=== PATIENT | male | born 1960 | race Caucasian/White ===

== ENCOUNTER 2017-09-12 16:29 | Emergency (ER) | payer MEDICAID ==
[~2017-09-12] VITALS: Ht 182.9 cm; Wt 82.6 kg
--- NOTE | 2017-09-12 16:43 | NUR ---
Pt denies SI/HI.
[2017-09-12] MEDS ORDERED: IV NS 1000 ML 1,000 ML IV ONE (17:15)
--- NOTE | 2017-09-12 17:43 | NUR ---
[facility] at the bedside for report. Pt is being pleasent and cooperative w/ staff and officers.
[2017-09-12 18:07] LABS: ETHANOL < 3 MG/DL (0-0)
[2017-09-12 18:22] LABS: ALANINE AMINOTRANSFERASE 27 U/L (16-63); ALKALINE PHOSPHATASE 54 U/L (50-136); ASPARTATE AMINOTRANSFERASE 23 U/L (15-37); BILIRUBIN,TOTAL 0.3 mg/dL (0.2-1.0); CARBON DIOXIDE 28 mmol/L (21-32); CHLORIDE 104 mmol/L (98-107); GLUCOSE 131 mg/dL (74-106); POTASSIUM 4.1 mmol/L (3.5-5.1); TOTAL PROTEIN, SERUM 6.7 g/dL (6.4-8.2); UREA NITROGEN, BLOOD 23 mg/dL (7-18)
[2017-09-12 18:32] LABS: ACETAMINOPHEN < 2.0 ug/mL (10-30); BILIRUBIN,DIRECT 0.1 mg/dL (0.0-0.2)
--- NOTE | 2017-09-12 18:59 | NUR ---
Patient is resting comfortably in bed with eyes closed, NAD noted.
[2017-09-12 19:24] LABS: BASOPHILS % (AUTO) 0.8 % (0.0-2.0); EOSINOPHILS # (AUTO) 0.1 K/uL (0.0-0.7); EOSINOPHILS % (AUTO) 1.3 % (0.0-7.0); HEMATOCRIT 34.9 % (36.7-47.1); HEMOGLOBIN 11.9 g/dL (12.5-16.3); LYMPHOCYTES # (AUTO) 1.7 K/uL (20.0-40.0); LYMPHOCYTES % (AUTO) 31.6 % (20.5-51.5); MEAN CORPUSCULAR HEMOGLOBIN 30.4 uug (23.8-33.4); MEAN CORPUSCULAR HGB CONC 34 g/dL (32.5-36.3); MEAN CORPUSCULAR VOLUME 89.1 fL (73.0-96.2); MONOCYTES # (AUTO) 0.6 K/uL (2.0-10.0); MONOCYTES % (AUTO) 10.9 % (0.0-11.0); NEUTROPHILS % (AUTO) 55.4 % (38.5-71.5); PLATELET COUNT (AUTO) 192 K/uL (152-348); RED BLOOD CELL COUNT(AUTO) 3.92 MIL/uL (4.06-5.63); WHITE BLOOD COUNT (AUTO) 5.3 K/uL (3.6-10.2)
--- NOTE | 2017-09-12 19:31 | NUR ---
REPORT RECEIVED FROM SHELBY BRADFORD. PT FOUND IN BED W/ [employer]UCK[employer] CADENA PATROL AT BEDSIDE. PT IS A&OX4 AND COOPERATIVE. FRESH VITALS TAKEN. PT DOES NOT EXPRESS OR DISPLAY ANY SIGNS OF DISTRESS. AWAITING FURTHER MD ORDERS.
[2017-09-12 21:42] VITALS: BP 138/88
== END 2017-09-12 21:41 ==
LOC: ER 16:32
DX: T48.1X1A Poisoning by skeletal muscle relaxants [neuromuscular blocking agents], accidental (unintentional), initial encounter (principal); T42.8X1A Poisoning by antiparkinsonism drugs and other central muscle-tone depressants, accidental (unintentional), initial encounter; T40.2X1A Poisoning by other opioids, accidental (unintentional), initial encounter; R40.0 Somnolence; F19.10 Other psychoactive substance abuse, uncomplicated; Y92.89 Other specified places as the place of occurrence of the external cause
CPT/HCPCS: 36415; 70030-TC; 70450; 71045; 85025; 93005; A4663; G0480; G0480-TC; J7030